=== PATIENT | male | born 1955 | race African-American/Black ===

== ENCOUNTER 2018-04-03 04:34 | Emergency (ER) | payer MEDICARE, MEDICAID ==
[~2018-04-03] VITALS: Ht 175.3 cm; Wt 84.0 kg
[2018-04-03] MEDS ORDERED: ONDANSETRON HCL 4MG/2ML INJ IV STA (07:36)
[2018-04-03] MEDS ORDERED: SODIUM CHLORIDE 0.9% 1,000 ML IV ONE (07:36)
[2018-04-03 08:51] LABS: BASOPHILS % 0.5 % (0.0-2.0); EOSINOPHILS % 1.8 % (0.0-5.0); HEMATOCRIT. 29.3 % (42.0-52.0); HEMOGLOBIN. 9.1 g/dL (14.0-18.0); LYMPHOCYTES % 10.8 % (20.0-50.0); MEAN CORPUSCULAR HEMOGLOBIN 23.1 pg (28.0-32.0); MEAN PLATELET VOLUME 8.6 fl (7.4-10.4); MONOCYTES % 6.6 % (2.0-8.0); NEUTROPHILS % 80.3 % (40.0-76.0); PLATELET 242 x1000/uL (130-400); RED BLOOD CELL COUNT 3.96 mill/uL (4.7-6.1); RED CELL DISTRIBUTION WIDTH 15.5 % (11.6-14.6)
[2018-04-03 08:56] LABS: CHLORIDE 114 mEq/L (98-107)
[2018-04-03 10:03] VITALS: BP 115/66
== END 2018-04-03 10:14 | disposition home or self-care (01) ==
LOC: ER 04:34
DX: I95.1 Orthostatic hypotension (principal)
CPT/HCPCS: 36415; 80053; 85025; 93005; 96361; 96374; 99284; J2405; J7030

== ENCOUNTER 2018-04-15 21:41 | Inpatient (IN) | payer MEDICARE, MEDICAID ==
[~2018-04-15] VITALS: Ht 177.8 cm; Wt 57.8 kg
[2018-04-16] VITALS (8 sets, daily range): BP systolic 106–131; BP diastolic 59–75
[2018-04-16 00:04] LABS: BASOPHILS % 0.5 % (0.0-2.0); EOSINOPHILS % 0.1 % (0.0-5.0); HEMATOCRIT. 21.8 % (42.0-52.0); LYMPHOCYTES % 13.7 % (20.0-50.0); MEAN CORPUSCULAR HEMOGLOBIN 23.6 pg (28.0-32.0); MONOCYTES % 5.6 % (2.0-8.0); NEUTROPHILS % 80.1 % (40.0-76.0); PLATELET 311 x1000/uL (130-400); RED BLOOD CELL COUNT 2.87 mill/uL (4.7-6.1); RED CELL DISTRIBUTION WIDTH 16.8 % (11.6-14.6)
[2018-04-16 00:08] LABS: HEMOGLOBIN. 6.8 g/dL (14.0-18.0)
[2018-04-16 00:13] LABS: CHLORIDE 109 mEq/L (98-107)
[2018-04-16] MEDS ORDERED: SODIUM CHLORIDE 0.9% 1,000 ML IV SCH (02:26)
[2018-04-16] MEDS ORDERED: ACETAMINOPHEN 325MG TABLET PO PRN (02:30)
[2018-04-16] MEDS ORDERED: CLONIDINE 0.1MG TABLET PO PRN (02:30)
[2018-04-16] MEDS ORDERED: DIPHENHYDRAMINE 50MG/ML VIAL IV PRN (02:30)
[2018-04-16] MEDS ORDERED: MAGNESIUM/ALUMINUM HYDROXIDE/SIMETHICONE 30ML UDC PO PRN (02:30)
[2018-04-16] MEDS ORDERED: ONDANSETRON HCL 4MG/2ML INJ IV PRN (02:30)
[2018-04-16] MEDS: SODIUM CHLORIDE 0.9% 1,000 ML IV SCH ×2 (04:37→15:37)
[2018-04-16] MEDS: PANTOPRAZOLE SODIUM 40 MG/VIAL IV SCH ×2 (04:45→19:09)
[2018-04-16 05:20] LABS: TOTAL IRON BINDING CAPACITY 288 ug/dL (250-450)
[2018-04-16] MEDS ORDERED: PANTOPRAZOLE 40MG DR TABLET PO SCH (07:50)
[2018-04-16] MEDS: METOPROLOL TARTRATE 25MG TABLET PO SCH ×2 (09:00→21:50)
[2018-04-16] MEDS ORDERED: ASPIRIN 81MG EC TABLET PO SCH (09:00)
[2018-04-16] MEDS ORDERED: CLOPIDOGREL 75MG TABLET PO SCH (09:00)
[2018-04-16] MEDS ORDERED: METOCLOPRAMIDE HCL 10MG/2ML VIAL IV NR (11:27)
[2018-04-16] MEDS ORDERED: EPINEPHRINE 0.1MG/ML (1:10,000) 10ML SYR ONE (15:11)
[2018-04-16] MEDS ORDERED: SODIUM CHLORIDE 0.9% 10ML VIAL ONE (15:45)
[2018-04-16] MEDS ORDERED: SIMETHICONE 40 MG/0.6 ML 30ML ONE (15:45)
[2018-04-16] MEDS ORDERED: MIDAZOLAM HCL 5 MG/5 ML VIAL ONE (16:31)
[2018-04-16] MEDS ORDERED: FENTANYL CITRATE/PF 50MCG/ML 2ML VIAL ONE (16:31)
[2018-04-16] MEDS ORDERED: FENTANYL CITRATE/PF 50MCG/ML 2ML VIAL IV PRN (16:33)
[2018-04-16] MEDS ORDERED: MIDAZOLAM HCL 5 MG/5 ML VIAL IV PRN (18:30)
[2018-04-16 20:24] LABS: HEMATOCRIT 17.4 % (42.0-52.0); HEMOGLOBIN 5.5 g/dL (14.0-18.0)
[2018-04-16] MEDS ORDERED: TEMAZEPAM 15MG CAPSULE PO PRN (21:00)
[2018-04-16] MEDS: SUCRALFATE 1 G/10 ML UDC PO SCH (21:50)
[2018-04-17] VITALS (18 sets, daily range): BP systolic 106–139; BP diastolic 64–90
[2018-04-17] MEDS: SODIUM CHLORIDE 0.9% 1,000 ML IV SCH ×3 (00:37→20:37)
[2018-04-17] MEDS: PANTOPRAZOLE SODIUM 40 MG/VIAL IV SCH ×2 (04:45→17:07)
[2018-04-17] MEDS: SUCRALFATE 1 G/10 ML UDC PO SCH ×4 (06:27→20:39)
[2018-04-17 06:28] LABS: HEMATOCRIT 22.3 % (42.0-52.0); MEAN CORPUSCULAR HEMOGLOBIN 26.5 pg (28.0-32.0); MEAN CORPUSCULAR VOLUME 82.4 fL (80.0-94.0); PLATELET 205 x1000/uL (130-400); RED BLOOD CELL COUNT 2.71 mill/uL (4.7-6.1); RED CELL DISTRIBUTION WIDTH 20.6 % (11.6-14.6)
[2018-04-17 07:26] LABS: HEMOGLOBIN 7.2 g/dL (14.0-18.0)
[2018-04-17] MEDS: METOPROLOL TARTRATE 25MG TABLET PO SCH ×2 (10:04→20:40)
[2018-04-17 13:21] LABS: HEMATOCRIT 23.2 % (42.0-52.0); HEMOGLOBIN 7.5 g/dL (14.0-18.0)
[2018-04-17 13:41] LABS: T4 FREE 0.83 ng/dL (0.76-1.46)
[2018-04-18] VITALS (7 sets, daily range): BP systolic 122–135; BP diastolic 74–83
[2018-04-18] MEDS: PANTOPRAZOLE SODIUM 40 MG/VIAL IV SCH ×2 (04:10→17:06)
[2018-04-18] MEDS: SODIUM CHLORIDE 0.9% 1,000 ML IV SCH ×2 (06:02→17:08)
[2018-04-18] MEDS: SUCRALFATE 1 G/10 ML UDC PO SCH ×3 (06:02→17:06)
[2018-04-18 07:02] LABS: BASOPHILS % 0.6 % (0.0-2.0); EOSINOPHILS % 2.3 % (0.0-5.0); HEMATOCRIT. 30.6 % (42.0-52.0); LYMPHOCYTES % 31.1 % (20.0-50.0); MEAN CORPUSCULAR HEMOGLOBIN 26.9 pg (28.0-32.0); MEAN CORPUSCULAR VOLUME 82.7 fL (80.0-94.0); MONOCYTES % 7.6 % (2.0-8.0); NEUTROPHILS % 58.4 % (40.0-76.0); PLATELET 207 x1000/uL (130-400)
[2018-04-18 07:22] LABS: CREATINE KINASE 105 IU/L (39-308)
[2018-04-18 07:23] LABS: CREATINE KINASE MB FRACTION < 1.0 ng/mL (0.5-3.6)
[2018-04-18] MEDS ORDERED: CLOPIDOGREL 75MG TABLET PO SCH (09:00)
[2018-04-18] MEDS: METOPROLOL TARTRATE 25MG TABLET PO SCH (09:40)
== END 2018-04-18 19:30 | disposition home or self-care (01) | DRG 378 ==
LOC: ER 21:41 → 5WST 04-16 01:38 → ENRESERV 04-16 08:39
PROVIDERS: ADMIT Internal Medicine; ATTEND Internal Medicine
PROC: 0D568ZZ Destruction of Stomach, Via Natural or Artificial Opening Endoscopic (ICD-10-PCS; principal; 2018-04-16)
PROC: 3E0G8GC Introduction of Other Therapeutic Substance into Upper GI, Via Natural or Artificial Opening Endoscopic (ICD-10-PCS; 2018-04-16)
PROC: 30233N1 Transfusion of Nonautologous Red Blood Cells into Peripheral Vein, Percutaneous Approach (ICD-10-PCS; 2018-04-16)
DX: K25.0 Acute gastric ulcer with hemorrhage (principal); E44.0 Moderate protein-calorie malnutrition; E78.5 Hyperlipidemia, unspecified; I10 Essential (primary) hypertension; K21.9 Gastro-esophageal reflux disease without esophagitis; D50.9 Iron deficiency anemia, unspecified; E78.00 Pure hypercholesterolemia, unspecified; I25.10 Atherosclerotic heart disease of native coronary artery without angina pectoris; I25.2 Old myocardial infarction; Z79.02 Long term (current) use of antithrombotics/antiplatelets; Z79.82 Long term (current) use of aspirin; Z79.899 Other long term (current) drug therapy; Z83.3 Family history of diabetes mellitus; Z95.5 Presence of coronary angioplasty implant and graft; Z88.0 Allergy status to penicillin
CPT/HCPCS: 36415; 71045; 80061; 82550; 82553; 83036; 83540; 83550; 83880; 84439; 84443; 84484; 85014; 85018; 85027; 85379; 85384; 86850; 86900; 86920; 93005; 93306; 93970; 96361; 96374; 99152; 99153; 99285; C9113; J2250; J2765; J3010; J3490; J7040; J7050; P9016; G0500

== ENCOUNTER 2022-03-16 12:54 | Emergency (ER) | payer MEDICARE, MEDICAID ==
[~2022-03-16] VITALS: Ht 177.8 cm; Wt 81.0 kg
[2022-03-16 16:29] LABS: CLARITY URINE CLEAR (CLEAR); COLOR URINE YELLOW (YELLOW); KETONES URINE TRACE (NEGATIVE); LEUKOCYTE ESTERASE URINE NEGATIVE (NEGATIVE); NITRITE URINE NEGATIVE (NEGATIVE); OCCULT BLOOD URINE NEGATIVE (NEGATIVE); PH URINE 5.5 (4.5-8.0); PROTEIN URINE 1+ (NEGATIVE); SPECIFIC GRAVITY URINE 1.032 (1.005-1.030)
[2022-03-16] MEDS ORDERED: FAMOTIDINE 20MG TABLET PO ONE (16:30)
[2022-03-16] MEDS ORDERED: ONDANSETRON HCL 4MG TABLET PO ONE (16:30)
[2022-03-16] MEDS ORDERED: MAGNESIUM/ALUMINUM HYDROXIDE/SIMETHICONE 30ML UDC PO ONE (16:30)
[2022-03-16 17:09] LABS: BASOPHILS % 0.5 % (0.0-2.0); HEMATOCRIT. 39.9 % (42.0-52.0); HEMOGLOBIN. 12.9 g/dL (14.0-18.0); LYMPHOCYTES % 40.2 % (20.0-50.0); MEAN CORPUSCULAR HEMOGLOBIN 24.2 pg (28.0-32.0); MEAN CORPUSCULAR VOLUME 74.6 fL (80.0-94.0); MEAN PLATELET VOLUME 7.9 fl (7.4-10.4); MONOCYTES % 9.3 % (2.0-8.0); PLATELET 320 x1000/uL (130-400); RED BLOOD CELL COUNT 5.35 mill/uL (4.7-6.1)
[2022-03-16 17:10] LABS: *AMPHETAMINES SCREEN URINE NEGATIVE (NEGATIVE); *BARBITURATES SCREEN URINE NEGATIVE (NEGATIVE); *BENZODIAZEPINES SCREEN URINE NEGATIVE (NEGATIVE); *COCAINE SCREEN URINE NEGATIVE (NEGATIVE); CANNABINOID URINE SCREEN NEGATIVE (NEGATIVE); METHADONE URINE SCREEN NEGATIVE (NEGATIVE); OPIATES URINE SCREEN NEGATIVE (NEGATIVE); PHENCYCLIDINE URINE SCREEN NEGATIVE (NEGATIVE)
[2022-03-16 17:15] LABS: PROTHROMBIN TIME 11.1 sec (9.6-11.0)
[2022-03-16 17:19] LABS: CHLORIDE 107 mEq/L (98-107)
[2022-03-16 17:28] LABS: ETHANOL BLOOD < 10 mg/dL
[2022-03-16 18:30] VITALS: BP 145/76
[2022-03-16] MEDS ORDERED: ONDA4TAB50 MT (18:41)
[2022-03-16] MEDS ORDERED: FAMO40TA70 MT (18:41)
[2022-03-16] MEDS ORDERED: LACT1CAP78 MT (18:41)
== END 2022-03-16 18:47 | disposition home or self-care (01) ==
LOC: ER 15:32
DX: K21.9 Gastro-esophageal reflux disease without esophagitis (principal); E78.00 Pure hypercholesterolemia, unspecified; I25.2 Old myocardial infarction; I10 Essential (primary) hypertension; Z88.0 Allergy status to penicillin
CPT/HCPCS: 36415; 71045; 74176; 80053; 80305; 80320; 81003; 83690; 84484; 85025; 85610; 93005; 99285; Q0162; G0480

== ENCOUNTER 2023-11-18 12:58 | Inpatient (IN) | payer MEDICARE, MEDICAID ==
[~2023-11-18] VITALS: Ht 171.4 cm; Wt 74.9 kg
[~2023-11-18 12:58] MED LIST: FAMO40TA70 MT; LACT1CAP78 MT; ONDA4TAB50 MT
[2023-11-18 13:53] LABS: BASOPHILS % 0.6 % (0.0-2.0); DIFFERENTIAL COMMENT 0; EOSINOPHILS % 6.1 % (0.0-5.0); HEMATOCRIT. 27.3 % (42.0-52.0); HEMOGLOBIN. 8.7 g/dL (14.0-18.0); LYMPHOCYTES % 35.2 % (20.0-50.0); MEAN CORPUSCULAR HEMOGLOBIN 23.5 pg (28.0-32.0); MEAN CORPUSCULAR HGB CONC 31.7 g/dL (31.0-37.0); MEAN CORPUSCULAR VOLUME 74.2 fL (80.0-94.0); MONOCYTES % 7.2 % (2.0-8.0); NEUTROPHILS % 50.9 % (40.0-76.0); PLATELET 260 x1000/uL (130-400); RED BLOOD CELL COUNT 3.69 mill/uL (4.7-6.1); RED CELL DISTRIBUTION WIDTH 15.1 % (11.6-14.6); WHITE BLOOD COUNT 6.8 x1000/uL (4.5-11.0)
[2023-11-18 14:00] LABS: PROTHROMBIN TIME 11.1 sec (9.6-11.0)
[2023-11-18 14:18] LABS: CHLORIDE 109 mEq/L (98-107); POTASSIUM 3.7 mEq/L (3.5-5.1); SODIUM 140 mEq/L (136-145)
[2023-11-18 14:19] LABS: CALCIUM 9.6 mg/dL (8.7-10.4); CARBON DIOXIDE 26 mEq/L (21-32)
[2023-11-18 14:24] LABS: CREATININE 1.3 mg/dL (0.6-1.3); GLUCOSE 113 mg/dL (70-105); UREA NITROGEN BLOOD 30 mg/dL (9-23)
[2023-11-18 14:26] LABS: ALANINE AMINOTRANSFERASE 10 IU/L (10-49); ALBUMIN 4.1 g/dL (3.2-4.8); ASPARTATE AMINOTRANSFERASE 18 IU/L (<34); BILIRUBIN DIRECT 0.1 mg/dL (<=3.0); BILIRUBIN TOTAL 0.3 mg/dL (0.1-1.0); PROTEIN TOTAL 6.7 g/dL (6.0-8.3)
[2023-11-18 14:28] LABS: TROPONIN I HIGH SENSITIVITY < 4 ng/L (3.0-53)
[2023-11-18] MEDS ORDERED: CLONIDINE 0.1MG TABLET PO PRN (16:45)
[2023-11-18] MEDS ORDERED: IPRATROPIUM/ALBUTEROL 0.5-3(2.5)MG/3ML NEB HHN PRN (16:45)
[2023-11-18] MEDS ORDERED: ONDANSETRON HCL 4MG/2ML INJ IV PRN (16:45)
[2023-11-18] MEDS ORDERED: ACETAMINOPHEN 325MG TABLET PO PRN (16:45)
[2023-11-18] MEDS ORDERED: DIPHENHYDRAMINE 50MG/ML VIAL IV PRN (16:45)
[2023-11-18] MEDS: PANTOPRAZOLE SODIUM 40 MG/VIAL IV SCH (17:25)
[2023-11-19 06:48] LABS: BASOPHILS % 0.6 % (0.0-2.0); DIFFERENTIAL COMMENT 0; EOSINOPHILS % 6.3 % (0.0-5.0); HEMATOCRIT. 26.8 % (42.0-52.0); HEMOGLOBIN. 8.2 g/dL (14.0-18.0); LYMPHOCYTES % 38.2 % (20.0-50.0); MEAN CORPUSCULAR HEMOGLOBIN 23.2 pg (28.0-32.0); MEAN CORPUSCULAR HGB CONC 30.8 g/dL (31.0-37.0); MEAN CORPUSCULAR VOLUME 75.4 fL (80.0-94.0); MEAN PLATELET VOLUME 8.3 fl (7.4-10.4); MONOCYTES % 7.7 % (2.0-8.0); NEUTROPHILS % 47.2 % (40.0-76.0); PLATELET 216 x1000/uL (130-400); RED BLOOD CELL COUNT 3.55 mill/uL (4.7-6.1); RED CELL DISTRIBUTION WIDTH 15.3 % (11.6-14.6); WHITE BLOOD COUNT 6.8 x1000/uL (4.5-11.0)
[2023-11-19 07:02] LABS: CHLORIDE 111 mEq/L (98-107); POTASSIUM 4.6 mEq/L (3.5-5.1); SODIUM 140 mEq/L (136-145)
[2023-11-19 07:03] LABS: CALCIUM 9.7 mg/dL (8.7-10.4); CARBON DIOXIDE 25 mEq/L (21-32)
[2023-11-19 07:08] LABS: CREATININE 1.2 mg/dL (0.6-1.3); GLUCOSE 85 mg/dL (70-105); UREA NITROGEN BLOOD 21 mg/dL (9-23)
[2023-11-19 08:30] VITALS: BP 105/64; PULSE 74; RESP 20; TEMP 36.61404; O2SAT 100
[2023-11-19 09:00] VITALS: BP 105/64; PULSE 74; RESP 20; TEMP 36.6404
[2023-11-19] MEDS ORDERED: AMLO5TAB88 PO (10:50)
[2023-11-19] MEDS ORDERED: LISI40TA13 PO (10:50)
[2023-11-19] MEDS ORDERED: METF-414 PO (10:50)
[2023-11-19] MEDS ORDERED: ASPI-1406 PO (11:00)
[2023-11-19] MEDS ORDERED: PANT40TA51 PO (11:01)
[2023-11-19] MEDS ORDERED: ATOR40TA70 PO (11:02)
[2023-11-19] MEDS ORDERED: CLOP75TA33 PO (11:02)
[2023-11-19] MEDS ORDERED: CHOL50003 PO (11:03)
[2023-11-19] MEDS ORDERED: METO-396 PO (11:03)
[2023-11-19 12:00] VITALS: BP 112/67; PULSE 75; RESP 20; TEMP 36.61404; O2SAT 100
[2023-11-19 16:00] VITALS: BP 100/69; PULSE 77; RESP 20; TEMP 36.6696; O2SAT 100
[2023-11-19] MEDS ORDERED: DIATR MEGLU/DIATRIZOATE SOLN 30ML PO NR (17:15)
[2023-11-19 20:00] VITALS: BP 111/65; PULSE 82; RESP 20; TEMP 36.61404; O2SAT 96
[2023-11-20] VITALS: BP 122/55; PULSE 82; RESP 20; TEMP 36.6696; O2SAT 96
[2023-11-20 04:00] VITALS: BP 111/68; PULSE 78; RESP 20; TEMP 36.6696; O2SAT 98
[2023-11-20 07:34] LABS: IRON 71 ug/dL (65-175)
[2023-11-20 07:37] LABS: TOTAL IRON BINDING CAPACITY 277 ug/dl (250-425)
[2023-11-20 08:00] VITALS: BP 116/67; PULSE 63; RESP 20; TEMP 36.55848; O2SAT 98
[2023-11-20 09:35] LABS: VITAMIN B12 SERUM 413 pg/mL (211-911)
[2023-11-20 09:36] LABS: FERRITIN 107 ng/mL (22-322)
[2023-11-20] MEDS: DIATR MEGLU/DIATRIZOATE SOLN 30ML ONE (10:15)
[2023-11-20] MEDS ORDERED: *PATIENT'S OWN MEDICATION STORAGE XX SCH (11:00)
[2023-11-20 12:00] VITALS: BP 97/57; PULSE 85; RESP 20; TEMP 36.61404; O2SAT 100
[2023-11-20 16:00] VITALS: BP 105/63; PULSE 84; RESP 20; TEMP 36.6696; O2SAT 100
[2023-11-20] MEDS ORDERED: SENNOSIDES/DOCUSATE SOD 8.6/50MG TABLET PO PRN (16:45)
[2023-11-20 20:03] VITALS: BP 102/64; PULSE 86; RESP 17; TEMP 36.6696; O2SAT 98
[2023-11-21 04:00] VITALS: BP 106/74; PULSE 85; RESP 16; TEMP 36.72516; O2SAT 98
[2023-11-21 08:00] VITALS: BP 103/67; PULSE 82; RESP 18; TEMP 36.114; O2SAT 98
[2023-11-21] MEDS: BISACODYL 5MG TABLET PO SCH (09:37)
[2023-11-21 12:00] VITALS: BP 123/81; PULSE 88; RESP 20; TEMP 36.6696; O2SAT 96
[2023-11-21 13:42] LABS: BASOPHILS % 0.6 % (0.0-2.0); DIFFERENTIAL COMMENT 0; EOSINOPHILS % 4.9 % (0.0-5.0); HEMATOCRIT. 30.9 % (42.0-52.0); HEMOGLOBIN. 9.7 g/dL (14.0-18.0); LYMPHOCYTES % 32.8 % (20.0-50.0); MEAN CORPUSCULAR HEMOGLOBIN 23.4 pg (28.0-32.0); MEAN CORPUSCULAR HGB CONC 31.4 g/dL (31.0-37.0); MEAN CORPUSCULAR VOLUME 74.5 fL (80.0-94.0); MEAN PLATELET VOLUME 8.1 fl (7.4-10.4); MONOCYTES % 8.7 % (2.0-8.0); PLATELET 284 x1000/uL (130-400); RED BLOOD CELL COUNT 4.15 mill/uL (4.7-6.1); RED CELL DISTRIBUTION WIDTH 15.2 % (11.6-14.6); WHITE BLOOD COUNT 6.6 x1000/uL (4.5-11.0)
[2023-11-21 13:58] LABS: CHLORIDE 107 mEq/L (98-107); POTASSIUM 4.9 mEq/L (3.5-5.1); SODIUM 139 mEq/L (136-145)
[2023-11-21 13:59] LABS: CARBON DIOXIDE 27 mEq/L (21-32)
[2023-11-21 14:00] LABS: CALCIUM 10.2 mg/dL (8.7-10.4)
[2023-11-21 14:04] LABS: CREATININE 1.2 mg/dL (0.6-1.3); GLUCOSE 90 mg/dL (70-105); UREA NITROGEN BLOOD 18 mg/dL (9-23)
[2023-11-21 16:00] VITALS: BP 98/56; PULSE 84; RESP 20; TEMP 36.6696; O2SAT 98
[2023-11-21 20:00] VITALS: BP 100/69; PULSE 100; RESP 20; TEMP 32.2248; O2SAT 98
[2023-11-22] VITALS: BP 96/57; PULSE 84; RESP 20; TEMP 36.3918; O2SAT 96
[2023-11-22] MEDS: DEXT 5%/0.9% NACL 1,000 ML IV SCH (00:03)
[2023-11-22 04:00] VITALS: BP 125/83; PULSE 85; RESP 20; TEMP 36.55848; O2SAT 96
[2023-11-22 07:12] LABS: PROTHROMBIN TIME 10.9 sec (9.6-11.0)
[2023-11-22 07:21] LABS: CHLORIDE 106 mEq/L (98-107); POTASSIUM 4.1 mEq/L (3.5-5.1); SODIUM 140 mEq/L (136-145)
[2023-11-22 07:22] LABS: CARBON DIOXIDE 28 mEq/L (21-32)
[2023-11-22 07:23] LABS: BASOPHILS % 0.7 % (0.0-2.0); CALCIUM 9.9 mg/dL (8.7-10.4); DIFFERENTIAL COMMENT 0; EOSINOPHILS % 6.6 % (0.0-5.0); HEMATOCRIT. 27.1 % (42.0-52.0); HEMOGLOBIN. 8.5 g/dL (14.0-18.0); LYMPHOCYTES % 27.8 % (20.0-50.0); MEAN CORPUSCULAR HEMOGLOBIN 23.2 pg (28.0-32.0); MEAN CORPUSCULAR HGB CONC 31.4 g/dL (31.0-37.0); MEAN CORPUSCULAR VOLUME 73.9 fL (80.0-94.0); MEAN PLATELET VOLUME 8.2 fl (7.4-10.4); MONOCYTES % 9.3 % (2.0-8.0); NEUTROPHILS % 55.6 % (40.0-76.0); PLATELET 263 x1000/uL (130-400); RED BLOOD CELL COUNT 3.67 mill/uL (4.7-6.1); RED CELL DISTRIBUTION WIDTH 15.1 % (11.6-14.6)
[2023-11-22 07:27] LABS: CREATININE 1.3 mg/dL (0.6-1.3); GLUCOSE 96 mg/dL (70-105)
[2023-11-22 07:28] LABS: UREA NITROGEN BLOOD 18 mg/dL (9-23)
[2023-11-22 08:00] VITALS: BP 102/70; PULSE 75; RESP 20; TEMP 36.114; O2SAT 99
[2023-11-22] MEDS ORDERED: PROPOFOL 200MG/20ML VIAL IV ONE (10:06)
[2023-11-22] MEDS ORDERED: LIDOCAINE HCL 1% 20ML VIAL ONE (10:06)
[2023-11-22] MEDS ORDERED: HYDROMORPHONE HCL/PF 1MG/ML INJ IV PRN (10:30)
[2023-11-22] MEDS ORDERED: LABETALOL 5MG/ML 4ML INJ IV PRN (10:30)
[2023-11-22] MEDS ORDERED: ONDANSETRON HCL 4MG/2ML INJ IV PRN (10:30)
[2023-11-22] MEDS ORDERED: MEPERIDINE HCL/PF 25MG/ML CPJ IV PRN (10:30)
[2023-11-22] MEDS: METOCLOPRAMIDE HCL 10MG/2ML VIAL IV SCH (11:53)
[2023-11-22 12:00] VITALS: BP 106/71; PULSE 83; RESP 20; TEMP 36.78072; O2SAT 99
[2023-11-22 16:00] VITALS: BP 119/76; PULSE 89; RESP 20; TEMP 36.78072; O2SAT 99
[2023-11-22 20:00] VITALS: BP 91/64; PULSE 89; RESP 18; TEMP 36.50292; O2SAT 99
[2023-11-22] MEDS: PANTOPRAZOLE SODIUM 40 MG/VIAL IV SCH (21:09)
[2023-11-23] VITALS: BP 101/63; PULSE 79; RESP 20; TEMP 36.55848; O2SAT 98
[2023-11-23 04:00] VITALS: BP 107/66; PULSE 77; RESP 19; TEMP 36.78072; O2SAT 99
[2023-11-23 07:29] LABS: BASOPHILS % 0.6 % (0.0-2.0); DIFFERENTIAL COMMENT 0; EOSINOPHILS % 7.8 % (0.0-5.0); HEMATOCRIT. 28.4 % (42.0-52.0); HEMOGLOBIN. 8.8 g/dL (14.0-18.0); LYMPHOCYTES % 27.1 % (20.0-50.0); MEAN CORPUSCULAR HEMOGLOBIN 23.1 pg (28.0-32.0); MEAN CORPUSCULAR VOLUME 74.5 fL (80.0-94.0); MEAN PLATELET VOLUME 8.2 fl (7.4-10.4); MONOCYTES % 9.3 % (2.0-8.0); NEUTROPHILS % 55.2 % (40.0-76.0); PLATELET 265 x1000/uL (130-400); RED BLOOD CELL COUNT 3.82 mill/uL (4.7-6.1); RED CELL DISTRIBUTION WIDTH 15.2 % (11.6-14.6); WHITE BLOOD COUNT 5.9 x1000/uL (4.5-11.0)
[2023-11-23 07:30] LABS: CHLORIDE 109 mEq/L (98-107); POTASSIUM 4.4 mEq/L (3.5-5.1); SODIUM 140 mEq/L (136-145)
[2023-11-23 07:31] LABS: CARBON DIOXIDE 26 mEq/L (21-32)
[2023-11-23 07:32] LABS: CALCIUM 9.3 mg/dL (8.7-10.4)
[2023-11-23 07:36] LABS: CREATININE 1.2 mg/dL (0.6-1.3); GLUCOSE 92 mg/dL (70-105)
[2023-11-23 07:37] LABS: UREA NITROGEN BLOOD 16 mg/dL (9-23)
[2023-11-23 08:00] VITALS: BP 106/80; PULSE 79; RESP 16; TEMP 37.00296; O2SAT 100
[2023-11-23 12:00] VITALS: BP 102/68; PULSE 66; RESP 18; TEMP 36.9474; O2SAT 98
[2023-11-23 16:00] VITALS: BP 125/78; PULSE 75; RESP 16; TEMP 36.89184; O2SAT 99
[2023-11-23 20:55] VITALS: BP 119/69; PULSE 77; RESP 18; TEMP 36.50292; O2SAT 98
[2023-11-24 00:31] VITALS: BP 128/80; PULSE 92; RESP 18; TEMP 36.00288; O2SAT 99
[2023-11-24 04:50] VITALS: BP 110/73; PULSE 73; RESP 18; TEMP 36.50292; O2SAT 99
[2023-11-24 08:00] VITALS: BP 120/77; PULSE 77; RESP 18; TEMP 35.78064; O2SAT 99
[2023-11-24 12:00] VITALS: BP 126/72; PULSE 81; RESP 18; TEMP 36.61404; O2SAT 97
[2023-11-24 16:00] VITALS: BP 133/79; PULSE 83; RESP 18; TEMP 36.16956; O2SAT 100
[2023-11-24] MEDS ORDERED: ACETAMINOPHEN 1000MG/100ML 100 ML IV PRN (17:00)
[2023-11-24 20:14] VITALS: BP 114/72; PULSE 80; RESP 18; TEMP 36.16956; O2SAT 99
[2023-11-25 00:31] VITALS: BP 114/72; PULSE 73; RESP 18; TEMP 36.89184; O2SAT 99
[2023-11-25 04:01] LABS: BASOPHILS % 0.5 % (0.0-2.0); DIFFERENTIAL COMMENT 0; EOSINOPHILS % 5.1 % (0.0-5.0); HEMATOCRIT. 27.6 % (42.0-52.0); HEMOGLOBIN. 8.7 g/dL (14.0-18.0); LYMPHOCYTES % 28.6 % (20.0-50.0); MEAN CORPUSCULAR HEMOGLOBIN 23.6 pg (28.0-32.0); MEAN CORPUSCULAR HGB CONC 31.6 g/dL (31.0-37.0); MEAN CORPUSCULAR VOLUME 74.9 fL (80.0-94.0); MEAN PLATELET VOLUME 7.8 fl (7.4-10.4); NEUTROPHILS % 55.8 % (40.0-76.0); PLATELET 309 x1000/uL (130-400); RED BLOOD CELL COUNT 3.69 mill/uL (4.7-6.1); WHITE BLOOD COUNT 5.9 x1000/uL (4.5-11.0)
[2023-11-25 04:12] LABS: PROTHROMBIN TIME 11.3 sec (9.6-11.0)
[2023-11-25 04:40] VITALS: BP 139/91; PULSE 83; RESP 18; TEMP 36.61404; O2SAT 100
[2023-11-25 04:41] LABS: CHLORIDE 111 mEq/L (98-107); POTASSIUM 4.2 mEq/L (3.5-5.1); SODIUM 142 mEq/L (136-145)
[2023-11-25 04:42] LABS: CARBON DIOXIDE 26 mEq/L (21-32)
[2023-11-25 04:43] LABS: CALCIUM 9.4 mg/dL (8.7-10.4)
[2023-11-25 04:47] LABS: CREATININE 1.2 mg/dL (0.6-1.3); GLUCOSE 92 mg/dL (70-105); UREA NITROGEN BLOOD 13 mg/dL (9-23)
[2023-11-25 08:00] VITALS: BP 146/83; PULSE 76; RESP 18; TEMP 36.44736; O2SAT 99
[2023-11-25] MEDS ORDERED: SIMETHICONE 40 MG/0.6 ML 15ML ONE (11:21)
[2023-11-25] MEDS ORDERED: ETOMIDATE 2MG/ML 10ML VIAL IV ONE (11:36)
[2023-11-25] MEDS ORDERED: PROPOFOL 200MG/20ML VIAL IV ONE ×2 (11:37→12:01)
[2023-11-25 12:00] VITALS: BP 129/67; PULSE 78; RESP 18; TEMP 36.44736; O2SAT 98
[2023-11-25] MEDS ORDERED: HYDROMORPHONE HCL/PF 1MG/ML INJ IV PRN (12:30)
[2023-11-25] MEDS ORDERED: GLYCOPYRROLATE 0.2MG/ML VIAL 5ML IV PRN (12:30)
[2023-11-25] MEDS ORDERED: ONDANSETRON HCL 4MG/2ML INJ IV PRN (12:30)
[2023-11-25 16:00] VITALS: BP 129/69; PULSE 69; RESP 17; TEMP 36.50292; O2SAT 99
[2023-11-25 20:15] VITALS: BP 141/85; PULSE 88; RESP 18; TEMP 37.28076; O2SAT 100
[2023-11-26 00:21] VITALS: BP 125/85; PULSE 82; RESP 18; TEMP 35.8362; O2SAT 99
[2023-11-26 04:41] VITALS: BP 108/73; PULSE 86; RESP 18; TEMP 37.11408; O2SAT 100
[2023-11-26 07:33] LABS: CARBON DIOXIDE 26 mEq/L (21-32); CHLORIDE 111 mEq/L (98-107); POTASSIUM 3.8 mEq/L (3.5-5.1); SODIUM 141 mEq/L (136-145)
[2023-11-26 07:34] LABS: CALCIUM 7.9 mg/dL (8.7-10.4)
[2023-11-26 07:38] LABS: BASOPHILS % 0.6 % (0.0-2.0); DIFFERENTIAL COMMENT 0; EOSINOPHILS % 5.3 % (0.0-5.0); HEMATOCRIT. 28.3 % (42.0-52.0); HEMOGLOBIN. 8.9 g/dL (14.0-18.0); LYMPHOCYTES % 25.2 % (20.0-50.0); MEAN CORPUSCULAR HEMOGLOBIN 23.8 pg (28.0-32.0); MEAN CORPUSCULAR HGB CONC 31.3 g/dL (31.0-37.0); MEAN PLATELET VOLUME 8.1 fl (7.4-10.4); MONOCYTES % 8.9 % (2.0-8.0); PLATELET 313 x1000/uL (130-400); RED BLOOD CELL COUNT 3.72 mill/uL (4.7-6.1); RED CELL DISTRIBUTION WIDTH 15.9 % (11.6-14.6); WHITE BLOOD COUNT 5.7 x1000/uL (4.5-11.0)
[2023-11-26 07:39] LABS: CREATININE 1.2 mg/dL (0.6-1.3)
[2023-11-26 07:40] LABS: GLUCOSE 89 mg/dL (70-105); UREA NITROGEN BLOOD 10 mg/dL (9-23)
[2023-11-26 08:00] VITALS: BP 124/75; PULSE 86; RESP 18; TEMP 36.72516; O2SAT 100
[2023-11-26 12:00] VITALS: BP 124/62; PULSE 80; RESP 18; TEMP 37.7808; O2SAT 100
[2023-11-26 16:00] VITALS: BP 138/75; PULSE 80; RESP 18; TEMP 37.7808; O2SAT 98
[2023-11-26 20:00] VITALS: BP 109/82; PULSE 89; RESP 18; TEMP 35.89176; O2SAT 98
[2023-11-27] VITALS: BP 134/69; PULSE 78; RESP 18; TEMP 36.72516; O2SAT 100
[2023-11-27 04:00] VITALS: BP 112/66; PULSE 84; RESP 18; TEMP 36.78072; O2SAT 100
[2023-11-27 08:00] VITALS: BP 138/87; PULSE 89; RESP 17; TEMP 36.6696; O2SAT 100
[2023-11-27 12:00] VITALS: BP 142/81; PULSE 81; RESP 18; TEMP 36.89184; O2SAT 100
[2023-11-27] MEDS ORDERED: SUCR1TAB30 MT (12:29)
[2023-11-27 13:18] VITALS: BP 142/81; PULSE 81; TEMP 98.4; O2SAT 100
== END 2023-11-27 15:35 | disposition home or self-care (01) | DRG 378 ==
LOC: ER 12:58 → EDBEDREQ 14:42 → 5WST 16:09 → CANBEDREQ 17:29 → 8WST 11-19 08:21
PROVIDERS: ADMIT Internal Medicine; ATTEND Internal Medicine
PROC: 0DB78ZX Excision of Stomach, Pylorus, Via Natural or Artificial Opening Endoscopic, Diagnostic (ICD-10-PCS; principal; 2023-11-22)
DX: K92.1 Melena (principal); K31.1 Adult hypertrophic pyloric stenosis; I10 Essential (primary) hypertension; D50.9 Iron deficiency anemia, unspecified; K63.89 Other specified diseases of intestine; E78.00 Pure hypercholesterolemia, unspecified; I25.10 Atherosclerotic heart disease of native coronary artery without angina pectoris; K31.89 Other diseases of stomach and duodenum; K59.00 Constipation, unspecified; N40.0 Benign prostatic hyperplasia without lower urinary tract symptoms; K21.9 Gastro-esophageal reflux disease without esophagitis; K62.89 Other specified diseases of anus and rectum; Z79.02 Long term (current) use of antithrombotics/antiplatelets; Z79.82 Long term (current) use of aspirin; I25.2 Old myocardial infarction; Z79.84 Long term (current) use of oral hypoglycemic drugs; Z79.899 Other long term (current) drug therapy; Z88.0 Allergy status to penicillin; Z95.5 Presence of coronary angioplasty implant and graft; K29.70 Gastritis, unspecified, without bleeding; K27.7 Chronic peptic ulcer, site unspecified, without hemorrhage or perforation
CPT/HCPCS: 36415; 71045; 74176; 76700; 80048; 80076; 82607; 82728; 82746; 83540; 83550; 84153; 84484; 85025; 85044; 86301; 86850; 86900; 93005; 93306; 93970; 99285; J2470; J2704; J2765; J3490; J7042; Q9963